=== PATIENT | male | born 1980 | race Caucasian/White ===

== ENCOUNTER 2024-07-23 21:36 | Emergency (ER) | payer MEDICAID, SELFPAY ==
--- NOTE | 2024-07-23 21:30 | DI.RAD_ITS ---
Exam(s) XR KNEE LT 3V AP,LAT,KRISTYN EXAM: XR KNEE LT 3V AP,LAT,KRISTYN CLINICAL HISTORY: fall onto front of knee, pain. TECHNIQUE: 2D digital imaging was performed. Three views. COMPARISON: No exams were available for comparison FINDINGS: BONES: There is a small to clip the of the lateral femoral condyle laterally which may be degenerati ve. No bony destructive lesion is seen. JOINTS: There are [id number] degenerative changes of the lateral femoral tibial joint. The kne e is normally aligned. A large joint effusion is seen. SOFT TISSUE: Normal. IMPRESSION: Large joint effusion. No definite acute fracture. DATA REPOSITORY: RADIATION DOSE DELIVERED:
[2024-07-23 21:38] VITALS: BP 138/89; PULSE 69; RESP 18; TEMP 36.4; O2SAT 98
[2024-07-23] MEDS: Ibuprofen 600 MG TAB PO (21:52)
[2024-07-23] MEDS: Acetaminophen 500 MG TAB 1000 MG PO (21:52)
--- NOTE | 2024-07-23 22:07 | ED.GENADUL_ITS ---
Discharge Plan Disposition Patient Disposition: [facility] Condition: Stable Discharge Details Clinical Impression: Injury of knee, left Primary Care Provider: Unknown,Unknown ED Provider: Brittani Herr Home Meds and New Rx's Prescriptions: No Action No Known Home Meds Discharge Instructions Instructions: Minor Contusion ED Additional Instructions: You were seen in the emergency department today for evaluation of a knee injury after a fall. In our department you had a full physical examination performed and had an x-ray that showed some swelling in the area where you struck your knee, but no broken bones or other concerning findings. You are placed in a knee brace, can continue to use Tylenol and ibuprofen for management of pain, and can bear weight as tolerated on that leg. You should follow-up with your outpatient providers to discuss next steps and any symptoms that change, worsen, or persist. Thank you for allowing us to be part of your care. HPI General Mode of arrival: ambulatory . Date/Time Provider Initiated Documentation: 07/23/24 21:40 . Limitations to Documentation: no limitations . Information obtained by: patient, police and old records reviewed . HPI Narrative: HPI: This is a 43-year-old patient without reported past medical history presenting in custody of police for left knee injury. The patient was running during his arrest, fell and landed on the anterior aspect of his left knee. The patient did not strike his head or lose consciousness, this provider was able to review video footage of the fall and confirmed that the knee was the primarily injured part of the body. The patient reports that he is having pain in the anterior aspect, did sustain an abrasion, was able to ambulate into this department. He reports that the pain is generalized in location, worse when he moves or bends the knee, worse with palpation. He has not taken any medications for management of pain. Exam: Gen: Awake and alert, in no apparent distress HEENT: Non-icteric sclera Neck: Supple Lungs: No apparent respiratory distress, normal respiratory effort. CV: Appears well perfused, strong distal pulses Abdomen: Non-distended MSK: Moves 4 extremities without apparent limitation in ROM, left knee with abrasion overlying the anterior aspect and tenderness to this location, tenderness over the patella, along the medial and lateral joint lines. Patient able to range his knee but does have pain when he does so. Contralateral knee without significant tenderness, swelling, deformity. Skin: Visualized skin without rashes, cyanosis. Neuro: Normal Gait, no obvious focal deficits or facial asymmetry. Speaks in full, clear sentences. Psych: Appropriate for situation. MDM: This is a 43-year-old male patient presenting for evaluation of left knee injury. Differential includes but is not limited to contusion, sprain/strain, fracture, no evidence for dislocation, no evidence of neurovascular derangement. I will provide the patient with a dose of Tylenol and ibuprofen and obtain an x-ray of the affected left knee. ED Course: X-ray shows evidence of suprapatellar fluid versus hemarthrosis per radiology, consistent with the blunt injury that he sustained but no evidence for osseous abnormality. Did place the patient in a hinged knee brace for support, he was able to ambulate without the need for crutches, and I recommended outpatient reassessment for symptoms that change, worsen, or persist. At this time, the patient has had a full medical evaluation and is safe for discharge to home. They are hemodynamically stable, ambulatory, and tolerating PO. They are understanding of the follow-up plan and return precautions. They left our facility without incident in the care of police. Brittani Herr MD Related Data Home Medications ?Medication ?Instructions ?Recorded ?Confirmed Unknown [No Known Home Meds] 07/23/24 07/23/24 Allergies Allergy/AdvReac Type Severity Reaction Status Date / Time No Known Allergies Allergy Unverified 07/23/24 21:40 General Stated Complaint: Orthopedic JULIANNE: 4 Course Vital Signs Vital signs: Vital Signs Temperature 36.4 C L 07/23/24 21:38 Pulse 69 07/23/24 21:38 Respiratory Rate 18 07/23/24 21:38 Blood Pressure 138/89 07/23/24 21:38 Pulse Oximetry 98 07/23/24 21:38 Temperature 36.4 C L 07/23/24 21:38 Temperature Source Oral 07/23/24 21:38 Pulse 69 07/23/24 21:38 Respiratory Rate 18 07/23/24 21:38 Blood Pressure 138/89 07/23/24 21:38 Blood Pressure Position Sitting 07/23/24 21:38 Pulse Oximetry 98 07/23/24 21:38 Oxygen Delivery Method Room Air 07/23/24 21:38 Oxygen Flow Rate 0 07/23/24 21:38 Pain Level 9 07/23/24 21:41 Medical Decision Making Quality:SDOH Health Related Social Needs: No Data to Display PFSH All Active Problems (Updated 07/23/24 @ 23:18 by Brittani Herr MD) Injury of knee, left (Acute) Social History Smoking/Tobacco Use Status: Unknown Smoking risk assessment performed?: Yes Details: pt states he has not used alcohol/drugs today, did not want to be specific about previous use
--- NOTE | 2024-07-23 23:14 | DI.VRAD_ITS ---
PROCEDURE INFORMATION: Exam: XR Left Knee Exam date and time: 07/23/2024 10:27 PM Age: 43 years old Clinical indication: Injury or trauma; Other: Fall onto front of knee, pain; Blunt trauma; Left TECHNIQUE: Imaging protocol: Radiologic exam of the left knee. Views: 3 views. COMPARISON: No relevant prior studies available. FINDINGS: Bones/joints: Moderate suprapatellar knee joint effusion versus hemarthrosis. No acute fracture or dislocation. Soft tissues: Normal. IMPRESSION: Moderate suprapatellar knee joint effusion versus hemarthrosis. Dictated and Authenticated by: Riley Conrad MD. Orderin St. Declan Peter MD
== END 2024-07-23 23:28 ==
PROVIDERS: Emergency Provider Emergency Medicine
DX: M25.462 Effusion, left knee (principal); S89.82XA Other specified injuries of left lower leg, initial encounter; W01.0XXA Fall on same level from slipping, tripping and stumbling without subsequent striking against object, initial encounter; Y93.02 Activity, running; Y92.89 Other specified places as the place of occurrence of the external cause
CPT/HCPCS: 73562; 99283